=== PATIENT | female | born 1960 | race Caucasian/White ===

== ENCOUNTER 2024-04-10 15:34 | Outpatient (CLI) | payer MEDICARE, MEDICAID | END 2024-04-10 18:16 | disposition home or self-care (01) | LOC: SCT 15:34 | PROVIDERS: ATTEND Orthopaedic Surgery | DX: M17.12 Unilateral primary osteoarthritis, left knee (principal) ==

== ENCOUNTER 2024-04-11 06:29 | Day surgery (SDC) | payer MEDICARE, MEDICAID ==
[~2024-04-11] VITALS: Ht 154.9 cm; Wt 98.0 kg
[2024-04-11] MEDS ORDERED: ACETAMINOPHEN 500 MG TABLET ONE (06:53)
[2024-04-11] MEDS ORDERED: CEFAZOLIN SOD 2 GM in D5W 50 ML IV ONE (07:00)
[2024-04-11] MEDS: ACETAMINOPHEN 500 MG TABLET PO ONE (07:24)
[2024-04-11] MEDS ORDERED: NS IRRIG SOLN 5000 ML IR ONE (07:36)
[2024-04-11] MEDS ORDERED: WATER FOR IRRIGATION,STERILE 1,000 ML IRRIG.SOLN IR ONE (07:36)
[2024-04-11] MEDS ORDERED: BUPIVACAINE /PF 0.25% 30 ML VIAL INJ ONE (07:36)
[2024-04-11] MEDS ORDERED: SEVOFLURANE 15 MIN GAS INH ONE (07:36)
[2024-04-11] MEDS ORDERED: PROPOFOL 200MG/ 20ML VIAL (DIPRIVAN) IV ONE (07:36)
[2024-04-11] MEDS ORDERED: TRANEXAMIC ACID 1,000 MG/10 ML VIAL ONE (07:36)
[2024-04-11] MEDS ORDERED: LIDOCAINE/EPI 1% 1:100000 20 ML VIAL ONE (07:36)
[2024-04-11] MEDS ORDERED: ROCURONIUM BROMIDE 10 MG/ML (ZEMURON) ONE (07:36)
[2024-04-11] MEDS ORDERED: SUGAMMADEX SODIUM 200 MG/2 ML VIAL IV ONE (07:36)
[2024-04-11] MEDS ORDERED: SUCCINYLCHOLINE CHLORIDE 20 MG/ML(QUELICIN) ONE (07:36)
[2024-04-11] MEDS ORDERED: fentaNYL CITRATE/PF 100 MCG/2 ML AMP ONE (07:36)
[2024-04-11] MEDS ORDERED: MIDAZOLAM HCL 2 MG/2 ML VIAL (VERSED) ONE (07:36)
[2024-04-11] MEDS ORDERED: METOCLOPRAMIDE HCL 10 MG/2 ML VIAL ONE (07:36)
[2024-04-11] MEDS ORDERED: KETAMINE HCL 500 MG/10 ML VIAL ONE (07:36)
[2024-04-11] MEDS ORDERED: ONDANSETRON HCL 4 MG/2 ML VIAL ONE ×2 (07:36→13:33)
[2024-04-11] MEDS ORDERED: NS IRRIG SOLN 1000 ML IR ONE (07:36)
[2024-04-11] MEDS ORDERED: LR 1,000 ML IV.SOLN IV ONE (07:36)
[2024-04-11 07:58] VITALS: PULSE 73; RESP 18; TEMP 98.3; O2SAT 98
[2024-04-11] MEDS ORDERED: HYDROmorphone 1 MG/ML INJ. CARTRIDGE IVP PRN ×4 (09:00→11:00)
[2024-04-11] MEDS ORDERED: ONDANSETRON HCL 4 MG/2 ML VIAL IVP PRN ×2 (09:00→11:45)
[2024-04-11] MEDS ORDERED: MORPHINE 4 MG INJ. 4 MG/ML VIAL IVP PRN (09:00)
[2024-04-11] MEDS ORDERED: LR 1,000 ML IV SCH (09:00)
[2024-04-11] MEDS ORDERED: LORATADINE 10 MG TABLET PO PRN (11:00)
[2024-04-11] MEDS ORDERED: oxyCODONE HCL 5 MG TABLET PO PRN ×2 (11:00)
[2024-04-11] MEDS ORDERED: traMADol HCL HCL 50 MG TABLET (ULTRAM) PO PRN (11:00)
[2024-04-11] MEDS ORDERED: ceFAZolin SODIUM 2 GM in D5W 50 ML IV SCH (11:15)
[2024-04-11 11:31] VITALS: BP_SYST 132
[2024-04-11] MEDS ORDERED: DIPHENHYDRAMINE HCL 25 MG CAPSULE PO PRN (11:45)
[2024-04-11] MEDS ORDERED: LACTULOSE 20 GM/30 ML UDC PO PRN (11:45)
[2024-04-11] MEDS ORDERED: METOCLOPRAMIDE HCL 10 MG/2 ML VIAL IVP PRN (11:45)
[2024-04-11] MEDS ORDERED: BISACODYL 10 MG/SUPPOSITORY RC PRN (11:45)
[2024-04-11] MEDS ORDERED: TAMSULOSIN HCL 0.4 MG CAP PO ONE (12:15)
[2024-04-11] MEDS: HYDROmorphone 1 MG/ML INJ. CARTRIDGE ONE (13:15)
[2024-04-11] MEDS ORDERED: ACETAMINOPHEN 500 MG TABLET PO SCH (14:00)
[2024-04-11] MEDS ORDERED: SCOPOLAMINE HYDROBROMIDE 1 MG PATCH .72 H (TRANSDERM-SCOP) TD ONE (14:00)
[2024-04-11] MEDS ORDERED: SENNOSIDES/DOCUSATE SODIUM 1 TAB TABLET(SENOKOT-S) PO SCH (21:00)
[2024-04-12] MEDS ORDERED: ASPIRIN 81 MG TAB.CHEW PO SCH (21:00)
== END 2024-04-11 17:10 | disposition home or self-care (01) ==
LOC: SMU 06:29 → SDS 06:29
PROVIDERS: ATTEND Orthopaedic Surgery
DX: M17.12 Unilateral primary osteoarthritis, left knee (principal); M25.762 Osteophyte, left knee; M25.462 Effusion, left knee; M85.80 Other specified disorders of bone density and structure, unspecified site; I70.0 Atherosclerosis of aorta; E66.01 Morbid (severe) obesity due to excess calories; Z68.41 Body mass index [BMI] 40.0-44.9, adult; Z86.718 Personal history of other venous thrombosis and embolism; Z79.899 Other long term (current) drug therapy
CPT/HCPCS: 87081; 71046; 27447; 97162; 86886; 86900; 86901; 36415; 73560; 97110; 97530; 97116; 82948; 88305; 88311; J3490 ×3; J0690; J0696; J2765; J2250; J2405; J2704; J0330; J3010; J1170; J7060 ×2; J7120; C1776 ×3; C1713 ×2